=== PATIENT | male | born 1995 | race Caucasian/White ===

== ENCOUNTER 2023-08-22 10:58 | Day surgery (SDC) | payer SELFPAY ==
[2023-08-22] VITALS (9 sets, daily range): BP systolic 129–143; BP diastolic 76–101; PULSE 75–91; RESP 14–16; TEMP 36.1–36.6; O2SAT 90–96; BMI 40.1
--- NOTE | 2023-08-22 12:01 | PRE.ANES_ITS ---
ASA Classification* ASA Classification ASA Classification: 3 Assessment & Plan Anesthesia* Anesthesia Assessment Anesthesia Assessment: Discussed sedation and/or anesthesia options, risks, benefits, and alternatives with patient/parents/legal guardian/POA. Questions invited. The patient/parents/legal guardian/POA seems to understand and agrees to proceed with anesthesia plan. Reviewed the physical assessment, medical history, allergy history and patient home medications list prior to surgery/procedure/anesthetic and documented any changes. Performed airway and anesthesia risk assessments. 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 When Was Last Pacemaker Check QUESTION #4 FULL TEXT: You/Your Family Experience fever (hyperthermia) with Anesthesia Last Oral Intake Last Oral intake: Last Oral Intake NPO since 09:00 08/22/23 11:42 Meds taken in AM with sips of water? Meds patient instructed to take am of surgery PONV PONV - ice cream truck driver: PONV - ice cream truck driver Female No 08/22/23 11:42 HX of Motion Sickness No 08/22/23 11:42 HX of N/V After Surgery No 08/22/23 11:42 Non-Smoker No 08/22/23 11:42 Duration of Surgery greater Yes 08/22/23 11:42 than 60 minutes Number of Risk Factors 1 08/22/23 11:42 PONV Score Low Risk 08/22/23 11:42 Height & Weight Height & Weight: Anesthesia: Height & Weight Height 6 ft 1 in 08/22/23 11:42 Weight: 137.892 kg 08/22/23 11:42 Body Mass Index (BMI) 40.1 08/22/23 11:42 Respiratory Assessment Respiratory Assessment - ice cream truck driver: Respiratory Tract Infection Hx - ice cream truck driver Hx Respiratory Tract Infection No 08/22/23 11:42 STOP Sleep Apnea STOP Sleep Apnea - ice cream truck driver: STOP Sleep Apnea - ice cream truck driver Hx Hypertension No 08/22/23 11:42 Hx Sleep Apnea No 08/22/23 11:42 CPAP BIPAP Do you snore loudly (louder Yes 08/22/23 11:42 than talking or can be heard Do you often feel tired/ Yes 08/22/23 11:42 fatigued/ sleepy during daytime? Has anyone observed you stop Yes 08/22/23 11:42 breathing during sleep? STOP Results Positive 08/22/23 11:42 QUESTION #5 FULL TEXT : Do you snore loudly (louder than talking or can be heard through closed doors)? 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 Specify any problems Hx of Preganancy in last 3 N/A 08/22/23 11:42 Months Nurse Filling Out Transfusion CALI 08/22/23 11:42 & Questions: Date: 08/22/23 08/22/23 11:42 Time: 11:46 08/22/23 11:42 Patient unable to answer at this time (ie. confused, unrespo /Reproduction History /Reproductive History - ice cream truck driver: /Reproductive Hx- ice cream truck driver Hx Now Gestational Age (in weeks): EDC: Hx Hx Para Hx Section SAB Active Medications Active Medications: Current Medications Generic Name Dose Route Start Last Admin Trade Name Freq PRN Reason Stop Dose Admin Lactated Ringer's 1,000 mls @ 15 mls/hr 08/22/23 11:15 IV .Q48H KAT Cefazolin Sodium 3 gm/ Sodium 115 mls @ 150 mls/hr 08/22/23 12:00 Chloride IV 08/22/23 12:45 PREOP ONE PFSH Home Medications ?Medication ?Instructions ?Recorded ?Last Taken ?Type NK 08/22/23 Unknown History Allergy/AdvReac Type Severity Reaction Status Date / Time amoxicillin Allergy Hives Verified 08/22/23 11:40 Social History Smoking Status: Current every day smoker tobacco type: e-cigarettes Review of Systems (Anesthesia) ROS Narrative System reviewed and no additional complaints, except as documented.
[2023-08-22] MEDS: Lactated Ringers 1,000 ML 15 ML IV (12:14)
[2023-08-22] MEDS: Cefazolin 3 GM in 0.9% Normal Saline (100mL Bag) 100 ML IV (12:56)
--- NOTE | 2023-08-22 14:30 | OP.PCM_ITS ---
Report of Operation Date of Procedure: 08/22/23 Description of Surgical Findings:: Preoperative diagnosis: Left knee quadriceps tendon rupture Postoperative diagnosis: Left knee quadriceps tendon rupture Procedure: Left knee quadriceps tendon repair Surgeon: Rory Jorgensen DO Commercial Attorney: ANGELA Rosario Anesthesia: General endotracheal Anesthesiologist: Dr. Murillo Complications: None Drains: None Estimated blood loss: 25 cc Urinary output: None recorded IV fluids: Per anesthesia record Specimens: None Surgical implants: Arthrex #5 FiberWire x 2 Surgical indications: This is a 28-year-old male who sustained a injury to his left knee 2 days ago after a trip and fall on a toy going downstairs. An eccentric contraction of his quadriceps was noted and he felt a pop in his left knee. He was unable to extend his knee. X-rays revealed a patella baja. Examination was consistent with a quadriceps tendon rupture. He was seen in the office yesterday. I recommended open repair of the left quadriceps tendon rupture after seeing the patient in consultation. The risks, benefits, alternatives to procedure were reviewed with the patient at length. He agreed to proceed with surgery. Risks included but were not limited to bleeding, infection, loss of life or limb, risk of anesthesia, need for additional surgery, persistent pain, nonhealing tendon, arthrofibrosis, extensor lag, neurovascular injury, DVT or PE. Informed se consent nt was obtained prior to procedure. Description of procedure: Patient was identified in the preoperative holding area by name, medical record number, and date of . The operative extremity was marked. Informed consent was confirmed with the patient. All questions were answered to his satisfaction. Femoral nerve block was administered by anesthesia staff prior to the procedure. At time of his procedure, patient was brought to the operative suite and positioned supine a standard operating table. All bony prominences were well- padded. General anesthesia was induced with a laryngeal mask airway placed. After adequate anesthesia and securing the tube, a well-padded pneumatic tourniquet was applied to left upper thigh. We then prepped and draped the left lower extremity in a normal, sterile orthopedic fashion after placing a bump under the patient's left hip and elevating the left lower extremity slightly on bath blankets. 3g Ancef was administered prior to the incision by anesthesia staff. We then performed a timeout with all parties in attendance in agreement with the side, site, and operation be performed. No concerns were voiced and we elected to proceed. I first exsanguinated the left lower extremity and Esmarch bandage. Tourniquet was inflated 280 mmHg remained up for approximately 60 minutes. Esmarch was removed. I was able to palpate a defect in the quadriceps tendon. Incision was carried sharply through skin and subcutaneous tissue approximately 10 cm in length overlying the superior third of the patella and the quadriceps tendon. Bursa and fascia was split in line with the incision. I then encountered the retinacular and quadriceps tendon injury. There is significant mop ends of the quadriceps tendon remaining both on the patella as well as the end of the remaining quadriceps tendon. These were debrided sharply. I then thoroughly irrigated the knee with normal saline solution. There was significant hematoma along the distal quadriceps musculature. This was also debrided. I then exposed the superior pole the patella. I freshened the bony surface with a rasp. Retinacular tearing of the extensor mechanism was noted medially and laterally which was closed watertight with interrupted [id number] #1 Vicryl suture. I then performed a locking Krak?w type stitch with #5 FiberWire suture in the medial and lateral portions of the quadriceps tendon respectively. I then drilled 3 bone tunnels parallel with each other from the superior to inferior pole the patella with a 3.5 mm drill bit. A [employer] suture passer was used to shuttle or repair sutures through the patellar bone tunnels. I had my assistant professor of music hold tension on the medial sided Krackow suture reapproximated the tendon to bone. I then tied the lateral side with excellent reapproximation of the tendon to bone. I then tied the medial side with excellent reapproximation to bone. I brought the knee into approximately 30 degrees of flexion and significant tension was noted on the repair. I then brought the knee back into full extension. Tourniquet was deflated. Hemostasis was excellent. I thoroughly irrigated the wound with normal saline solution. Dermis and subcutaneous tissue was reapproximated 2-0 Vicryl buried suture. Skin was finally reapproximated with ofe. A silver dressing was applied. A bulky modified Stevenson dressing was then also applied. He was placed back into a knee immobilizer. Patient was then reversed from anesthesia and safely extubated in the operative suite. He was transferred to his hospital bed and subsequently to PACU in stable condition. Post Operative Plan: Weightbearing: Weightbearing as tolerated left lower extremity. Knee immobilizer to be removed only for hygiene purposes, at which time the knee should not be flexed. Patient is self-pay and I provided information regarding the appropriate brace to purchase. He is to purchase a T ROM type brace and bring it to his first postoperative visit in 2 weeks. At which time, we will initiate early flexion and some physical therapy. Antibiotics: Ancef 3 g prior to incision DVT Prophylaxis: SCDs, 81 mg aspirin twice daily Nam: None Dressing: Maintain surgical silver dressing x5 days, then okay to remove X-Rays: None Follow-up: 2 weeks in the office
--- NOTE | 2023-08-22 14:31 | PCM.POST.ANE ---
Anesthesia: Postop Eval I Current Vital Signs Temperature: 97.9 F Pulse Rate: 91 Blood Pressure: 143/91 Respiratory Rate: 14 Pulse Ox: 94 Oxygen Delivery Method: Room Air Assessment Airway patent: Yes Spontaneous unlabored respirations: Yes Mental status: Awake nausea: No Vomiting: No Anesthesia Complication: No Fluid Hydration Crystalloid volume administer (ml): 1,000 Total IV fluid infused: 1,000 Progress Note Anesthesia document: Postop Eval 1 completed: Yes
--- NOTE | 2023-08-22 14:42 | POSTOPAN2_ITS ---
Anesthesia Postop Eval I Sum Postop Eval Completion status Anesthesia document: Postop Eval 1 completed: Yes Anesthesia Postop Eval I Summary Anesthesia Postop Eval I Summary: Anesthesia Postop Eval I: Assessment Summary Airway patent Yes 08/22/23 14:32 CHEMICAL PROCESSING [email or web address] Spontaneous unlabored Yes 08/22/23 14:32 CHEMICAL PROCESSING [email or web address] respirations Mental status Awake 08/22/23 14:32 CHEMICAL PROCESSING [email or web address] nausea No 08/22/23 14:32 CHEMICAL PROCESSING [email or web address] Vomiting No 08/22/23 14:32 CHEMICAL PROCESSING [email or web address] Anesthesia Postop Eval I: Fluid Summary Crystalloid volume administer 1,000 08/22/23 14:32 CHEMICAL PROCESSING [email or web address] (ml) Colloids volume administered ( ml) Blood Product volume administered (ml) Total IV fluid infused 1,000 08/22/23 14:32 CHEMICAL PROCESSING [email or web address] Anesthesia Postop Eval I: Summary Notes Anesthesia Complication No 08/22/23 14:32 CHEMICAL PROCESSING [email or web address] Anesthesia Complication Comment: Post-operative progress note Anesthesia: Postop Eval II Evaluation Mental status: Awake Pain Level: 0 nausea: No Vomiting: No
--- NOTE | 2023-08-22 14:42 | PCM.POSTANE2 ---
Anesthesia Postop Eval I Sum Postop Eval Completion status Anesthesia document: Postop Eval 1 completed: Yes Anesthesia Postop Eval I Summary Anesthesia Postop Eval I Summary: Anesthesia Postop Eval I: Assessment Summary Airway patent Yes 08/22/23 14:32 [email or web address] Spontaneous unlabored Yes 08/22/23 14:32 [email or web address] respirations Mental status Awake 08/22/23 14:32 [email or web address] nausea No 08/22/23 14:32 [email or web address] Vomiting No 08/22/23 14:32 [email or web address] Anesthesia Postop Eval I: Fluid Summary Crystalloid volume administer 1,000 08/22/23 14:32 [email or web address] (ml) Colloids volume administered ( ml) Blood Product volume administered (ml) Total IV fluid infused 1,000 08/22/23 14:32 [email or web address] Anesthesia Postop Eval I: Summary Notes Anesthesia Complication No 08/22/23 14:32 [email or web address] Anesthesia Complication Comment: Post-operative progress note Anesthesia: Postop Eval II Evaluation Mental status: Awake Pain Level: 0 nausea: No Vomiting: No
== END 2023-08-22 15:45 | disposition home or self-care (01) ==
LOC: SDC 11:08 → AC 11:08
PROVIDERS: Referring Provider Student in an Organized Health Care Education/Training Program; Visit Provider Student in an Organized Health Care Education/Training Program
PROC: (CPT 27385; principal; 2023-08-22 12:55)
DX: S76.112A Strain of left quadriceps muscle, fascia and tendon, initial encounter (principal); Z68.41 Body mass index [BMI] 40.0-44.9, adult; E66.9 Obesity, unspecified; F17.200 Nicotine dependence, unspecified, uncomplicated; W19.XXXA Unspecified fall, initial encounter
CPT/HCPCS: 27385; 64447; 01250; J7120; A4216; J2405